=== PATIENT | female | born 1930 | race Caucasian/White ===

== ENCOUNTER → 2017-12-21 | Outpatient (CLI) | payer OTHER ==
[~2017-12-21] MED LIST: ASPI81CH PO; ATOR10 PO; Antivert25 MG PO; FLUSAL2505 INH; HYDR1TAB94 PO; IBUP200 PO; Lisinopril2.5 MG; NITR100CA PO; Norco 5-325 Ta1 EACH PO; OXYACE5T PO; PROACE100 PO; TIOT18 INH
== END | disposition home or self-care (01) ==
LOC: PLD 07:18 → LAB SHORT 07:18
DX: L82.1 Other seborrheic keratosis (principal)
CPT/HCPCS: 88305

== ENCOUNTER → 2019-11-23 | Outpatient (CLI) | payer OTHER | END | disposition home or self-care (01) | LOC: LAB SHORT 17:51 → LAB 17:51 | DX: R32 Unspecified urinary incontinence (principal) | CPT/HCPCS: 87077; 87086; 87186 ==

== ENCOUNTER 2020-07-04 05:39 | Emergency (ER) | payer OTHER ==
[~2020-07-04] VITALS: Ht 160 cm; Wt 47.6 kg
[2020-07-04 06:49] LABS: BASOPHILS ABSOLUTE AUTO 0.05 K/mm3 (0.00-0.23); BASOPHILS PERCENT AUTO 1 % (0-2); EOSINOPHILS ABSOLUTE AUTO 0.11 K/mm3 (0.00-0.68); EOSINOPHILS PERCENT AUTO 2 % (0-6); Hematocrit 42.8 % (33.0-51.0); Hemoglobin 13.8 g/dL (11.5-16.0); IMMATURE GRAN ABSOLUTE AUTO 0.02 K/mm3 (0.00-0.10); IMMATURE GRAN PERCENT AUTO 0 % (0-1); LYMPHOCYTES ABSOLUTE AUTO 1.44 K/mm3 (0.84-5.20); LYMPHOCYTES PERCENT AUTO 23 % (21-46); MONOCYTES ABSOLUTE AUTO 0.52 K/mm3 (0.16-1.47); MONOCYTES PERCENT AUTO 8 % (4-13); Mean Corpuscular HGB 34.4 pg (26.0-34.0); Mean Corpuscular HGB Conc 32.2 g/dL (31.5-36.5); Mean Corpuscular Volume 107 fL (80-100); Mean Platelet Volume 11.1 fL (9.1-12.4); NEUTROPHILS ABSOLUTE AUTO 4.13 K/mm3 (1.96-9.15); NEUTROPHILS PERCENT AUTO 66 % (41-73); Platelet Count 190 K/mm3 (150-400); RDW Coefficient Variation 14.6 % (11.7-14.2); RDW Standard Deviation 58.1 fL (35.1-46.3); Red Blood Cell Count 4.01 M/mm3 (3.80-5.20); White Blood Cell Count 6.27 K/mm3 (4.00-11.30)
[2020-07-04 07:04] LABS: Alanine Aminotransfer (ALT/SGP 31 U/L (12-78); Albumin, Blood 3.3 g/dL (3.4-5.0); Albumin/Globulin Ratio 0.8 (0.8-1.8); Alk Phos 176 U/L (50-136); Anion Gap 3 mmol/L (6-16); Aspartate Aminotrans (AST/SGOT 25 U/L (12-37); Bilirubin, Total 0.3 mg/dL (0.1-1.0); Blood Urea Nitrogen 28 mg/dL (8-24); Bun/Creatinine Ratio 30.3 (12.0-20.0); CO2, Blood 29 mmol/L (21-32); Chloride, Blood 105 mmol/L (98-108); Creatinine, Blood 0.92 mg/dL (0.40-1.00); Glomerular Filtration Rate >60 (60-); Glucose, Blood 88 mg/dL (70-99); Potassium, Blood 4.6 mmol/L (3.5-5.5); Sodium, Blood 137 mmol/L (136-145); Total Protein, Blood 7.3 g/dL (6.4-8.2); Troponin I <0.015 ng/mL (0.000-0.040)
[2020-07-04 07:30] LABS: Source, Urine Clean Catch
[2020-07-04 07:34] LABS: Appearance, Urine Clear (Clear); Bilirubin, Urine Neg (Neg); Blood, Urine 1+ (Neg); Color, Urine Yellow (P-Yellow); Glucose Qualitative, Urine Neg (Neg); Ketones, Urine Neg (Neg); Leukocyte Esterase, Urine Neg (Neg); Nitrite, Urine Neg (Neg); Protein, Urine 1+ (Neg); Urobilinogen, Urine NORM (Normal); pH, Urine 6.5 (5.0-8.0)
[2020-07-04 07:51] LABS: Bacteria Rare /hpf; Squamous Epithelial Cells Rare /hpf (Few); Transitional Epithelial Cells Few /hpf (0-Rare); White Blood Cells, Urine 0-2 /hpf (0-5)
== END 2020-07-04 08:04 | disposition home or self-care (01) ==
LOC: ER 05:39
PROVIDERS: Emergency Medicine
DX: R42 Dizziness and giddiness (principal); I10 Essential (primary) hypertension; J44.9 Chronic obstructive pulmonary disease, unspecified; E78.5 Hyperlipidemia, unspecified; Z88.1 Allergy status to other antibiotic agents; Z88.7 Allergy status to serum and vaccine; Z88.8 Allergy status to other drugs, medicaments and biological substances; Z79.82 Long term (current) use of aspirin; Z79.899 Other long term (current) drug therapy; F17.210 Nicotine dependence, cigarettes, uncomplicated
CPT/HCPCS: 36415; 70450; 71045; 80053; 81001; 84484; 85025; 93005; 93010; 99285-25

== ENCOUNTER 2020-11-08 13:08 | Emergency (ER) | payer OTHER ==
[~2020-11-08] VITALS: Ht 157.5 cm; Wt 49.9 kg
[2020-11-08 13:45] LABS: BASOPHILS ABSOLUTE AUTO 0.05 K/mm3 (0.00-0.23); BASOPHILS PERCENT AUTO 0 % (0-2); EOSINOPHILS ABSOLUTE AUTO 0.04 K/mm3 (0.00-0.68); EOSINOPHILS PERCENT AUTO 0 % (0-6); Hematocrit 42.7 % (33.0-51.0); Hemoglobin 13.5 g/dL (11.5-16.0); IMMATURE GRAN ABSOLUTE AUTO 0.05 K/mm3 (0.00-0.10); IMMATURE GRAN PERCENT AUTO 0 % (0-1); LYMPHOCYTES ABSOLUTE AUTO 0.97 K/mm3 (0.84-5.20); LYMPHOCYTES PERCENT AUTO 8 % (21-46); MONOCYTES ABSOLUTE AUTO 0.68 K/mm3 (0.16-1.47); MONOCYTES PERCENT AUTO 6 % (4-13); Mean Corpuscular HGB 34.2 pg (26.0-34.0); Mean Corpuscular HGB Conc 31.6 g/dL (31.5-36.5); Mean Corpuscular Volume 108 fL (80-100); Mean Platelet Volume 11.8 fL (9.1-12.4); NEUTROPHILS ABSOLUTE AUTO 9.75 K/mm3 (1.96-9.15); NEUTROPHILS PERCENT AUTO 85 % (41-73); Platelet Count 180 K/mm3 (150-400); Red Blood Cell Count 3.95 M/mm3 (3.80-5.20); White Blood Cell Count 11.54 K/mm3 (4.00-11.30)
[2020-11-08 14:43] LABS: Alanine Aminotransfer (ALT/SGP 27 U/L (12-78); Albumin, Blood 3.2 g/dL (3.4-5.0); Albumin/Globulin Ratio 0.8 (0.8-1.8); Alk Phos 158 U/L (50-136); Anion Gap 7 mmol/L (6-16); Aspartate Aminotrans (AST/SGOT 50 U/L (12-37); Bilirubin, Total 0.7 mg/dL (0.1-1.0); Blood Urea Nitrogen 40 mg/dL (8-24); Bun/Creatinine Ratio 43.5 (12.0-20.0); CO2, Blood 25 mmol/L (21-32); Calcium, Blood 8.8 mg/dL (8.5-10.1); Chloride, Blood 104 mmol/L (98-108); Creatinine, Blood 0.92 mg/dL (0.40-1.00); Globulin, Blood 3.9 g/dL (2.2-4.0); Glomerular Filtration Rate >60 (60-); Glucose, Blood 102 mg/dL (70-99); Potassium, Blood 5.1 mmol/L (3.5-5.5); Sodium, Blood 136 mmol/L (136-145); Total Protein, Blood 7.1 g/dL (6.4-8.2); Troponin I <0.015 ng/mL (0.000-0.040)
[2020-11-08] MEDS ORDERED: HYDR1TAB94 PO (15:09)
== END 2020-11-08 16:01 | disposition home or self-care (01) ==
LOC: ER 13:08
PROVIDERS: Emergency Medicine
DX: S22.42XA Multiple fractures of ribs, left side, initial encounter for closed fracture (principal); I10 Essential (primary) hypertension; J44.9 Chronic obstructive pulmonary disease, unspecified; E78.5 Hyperlipidemia, unspecified; F17.210 Nicotine dependence, cigarettes, uncomplicated; Z79.82 Long term (current) use of aspirin; Z79.899 Other long term (current) drug therapy; Z88.1 Allergy status to other antibiotic agents; Z88.7 Allergy status to serum and vaccine; Z86.73 Personal history of transient ischemic attack (TIA), and cerebral infarction without residual deficits; W19.XXXA Unspecified fall, initial encounter
CPT/HCPCS: 71046; 80053; 83880; 84484; 85025; 93005; 93010; A9270-GY

== ENCOUNTER 2020-11-10 20:30 | Inpatient (IN) | payer OTHER ==
[~2020-11-10] VITALS: Ht 157.5 cm; Wt 48.1 kg
[2020-11-10] MEDS ORDERED: FLUTICASONE-SA1 EAC9 INH ×2 (20:46→20:59)
[2020-11-10] MEDS ORDERED: HYDROCODONE-AC1 EA10 PO (20:46)
[2020-11-10] MEDS ORDERED: TIOT18 INH (20:46)
[2020-11-10] MEDS ORDERED: LISINOPRIL2.5 MG PO (20:47)
[2020-11-10] MEDS ORDERED: Ventolin/Prove6.7 GM INH (20:48)
[2020-11-10 20:55] LABS: BASOPHILS ABSOLUTE AUTO 0.04 K/mm3 (0.00-0.23); BASOPHILS PERCENT AUTO 0 % (0-2); EOSINOPHILS ABSOLUTE AUTO 0.03 K/mm3 (0.00-0.68); EOSINOPHILS PERCENT AUTO 0 % (0-6); Hematocrit 41.5 % (33.0-51.0); Hemoglobin 13.2 g/dL (11.5-16.0); IMMATURE GRAN ABSOLUTE AUTO 0.03 K/mm3 (0.00-0.10); IMMATURE GRAN PERCENT AUTO 0 % (0-1); LYMPHOCYTES PERCENT AUTO 6 % (21-46); MONOCYTES ABSOLUTE AUTO 1.03 K/mm3 (0.16-1.47); MONOCYTES PERCENT AUTO 10 % (4-13); Mean Corpuscular HGB 33.5 pg (26.0-34.0); Mean Corpuscular HGB Conc 31.8 g/dL (31.5-36.5); Mean Corpuscular Volume 105 fL (80-100); Mean Platelet Volume 11.1 fL (9.1-12.4); NEUTROPHILS PERCENT AUTO 83 % (41-73); Platelet Count 176 K/mm3 (150-400); RDW Coefficient Variation 15.2 % (11.7-14.2); RDW Standard Deviation 59.1 fL (35.1-46.3); Red Blood Cell Count 3.94 M/mm3 (3.80-5.20); White Blood Cell Count 10.03 K/mm3 (4.00-11.30)
[2020-11-10 21:14] LABS: Alanine Aminotransfer (ALT/SGP 24 U/L (12-78); Albumin, Blood 2.9 g/dL (3.4-5.0); Albumin/Globulin Ratio 0.7 (0.8-1.8); Alk Phos 188 U/L (50-136); Anion Gap 7 mmol/L (6-16); Aspartate Aminotrans (AST/SGOT 37 U/L (12-37); Bilirubin, Total 0.6 mg/dL (0.1-1.0); Blood Urea Nitrogen 50 mg/dL (8-24); Bun/Creatinine Ratio 55.2 (12.0-20.0); CO2, Blood 23 mmol/L (21-32); Calcium, Blood 9.2 mg/dL (8.5-10.1); Chloride, Blood 104 mmol/L (98-108); Creatinine, Blood 0.91 mg/dL (0.40-1.00); Globulin, Blood 4.2 g/dL (2.2-4.0); Glomerular Filtration Rate >60 (60-); Glucose, Blood 117 mg/dL (70-99); Sodium, Blood 134 mmol/L (136-145); Total Protein, Blood 7.1 g/dL (6.4-8.2)
[2020-11-10 23:30] LABS: Influenza A, PCR Negative (NEGATIVE); Influenza B, PCR Negative (NEGATIVE); Resp Syncytial Virus, PCR Negative (NEGATIVE); SARS-Cov-2 (COVID-19) PCR, MMC Negative (NEGATIVE)
--- NOTE | 2020-11-11 06:21 | NUR ---
Patient arrived in room 358 extremely tearful and difficult to get to focus on anything but her fractured rib pain. Severe short term memory loss, refusal to move to allow staff to assist with toileting, turning, etc. Patient refused placement of SCD's, I would recommend attempting this again in the Morning. Salvatore has a daughter, Mariaelena living in [place] who may be able to assist with information to determine discharge needs as the patient lives on her own and has taken several falls of late. Lungs very loose and coarse in upper airways and upper lobes with harsh barking cough that is of yet non productive
[2020-11-11 10:11] LABS: BASOPHILS ABSOLUTE AUTO 0.05 K/mm3 (0.00-0.23); BASOPHILS PERCENT AUTO 1 % (0-2); EOSINOPHILS ABSOLUTE AUTO 0.09 K/mm3 (0.00-0.68); EOSINOPHILS PERCENT AUTO 1 % (0-6); Hematocrit 40.9 % (33.0-51.0); IMMATURE GRAN ABSOLUTE AUTO 0.04 K/mm3 (0.00-0.10); IMMATURE GRAN PERCENT AUTO 1 % (0-1); LYMPHOCYTES ABSOLUTE AUTO 1.11 K/mm3 (0.84-5.20); LYMPHOCYTES PERCENT AUTO 13 % (21-46); MONOCYTES ABSOLUTE AUTO 0.82 K/mm3 (0.16-1.47); MONOCYTES PERCENT AUTO 10 % (4-13); Mean Corpuscular HGB 34.1 pg (26.0-34.0); Mean Corpuscular HGB Conc 31.8 g/dL (31.5-36.5); Mean Corpuscular Volume 107 fL (80-100); Mean Platelet Volume 11.2 fL (9.1-12.4); NEUTROPHILS ABSOLUTE AUTO 6.22 K/mm3 (1.96-9.15); NEUTROPHILS PERCENT AUTO 75 % (41-73); Platelet Count 161 K/mm3 (150-400); RDW Coefficient Variation 15.2 % (11.7-14.2); RDW Standard Deviation 60.5 fL (35.1-46.3); Red Blood Cell Count 3.81 M/mm3 (3.80-5.20); White Blood Cell Count 8.33 K/mm3 (4.00-11.30)
[2020-11-11 10:26] LABS: Anion Gap 7 mmol/L (6-16); Blood Urea Nitrogen 36 mg/dL (8-24); Bun/Creatinine Ratio 51.3 (12.0-20.0); CO2, Blood 23 mmol/L (21-32); Calcium, Blood 8.5 mg/dL (8.5-10.1); Chloride, Blood 109 mmol/L (98-108); Glomerular Filtration Rate >60 (60-); Glucose, Blood 87 mg/dL (70-99); Potassium, Blood 4.4 mmol/L (3.5-5.5); Sodium, Blood 139 mmol/L (136-145)
--- NOTE | 2020-11-11 12:34 | NUR ---
Met with pt after her work with PT. We had a flaquita long discussion about her life and future. She is wondering where she goes from here and if she is dying. We had an honest discussion about progression towrds when you have a longterm illness. We discussed comfort and a natural progression of life. She wants to stay i her home. Had a blunt discussion of letting help in to reduce suffering and return trips to hospital. She did not like but demonstarted understaning and accepatnce. We discussed levels of care and comfort did not broach hospice care. She does not want exptrodinary care or intubation. At this pointt wants comfort. Called her daughter to review our conversation and to confirm DNR status and if she agees. Had Bed side nurse witness. She did agree and believes she has adnr polst at home. Discussed plans of care with daughter including potential increased hospital visits and placement versus hospice. She was more intersted in hospice if her mother agrees. Will follow up with pt and family. Pt transtioned to DNR.
--- NOTE | 2020-11-11 16:45 | NUR ---
SHIFT SUMMARY PATIENT MEDICATED X2 FOR PAIN THIS SHIFT, VERY PAINFUL WITH MOVEMENT. SHORT OF BREATH WITH ACTIVITY, 3-4L/NC TO MAINTAIN OXYGEN SATURATION ABOVE 92%. DENIES NAUSEA. MEPILEX TO REDDENED AREA ON BUTTOCKS/COCCYX. PATIENT WORKD WITH PT, UP 1X W/FWW AND GAIT BELT TO [facility] [place] PALLIATIVE CARE CONSULTED, CODE STATUS CHANGED TO DNR. PATIENT AND FAMILY OPEN TO HOSPICE IF PATIENT CONTINUES TO DECLINE. NIECE GI VISTED IN AFTERNOON. PATIENT PLEASANT AND COPERATIVE WITH CARE.
[2020-11-12] MEDS ORDERED: FLUT1DIS5 INH (04:36)
[2020-11-12] MEDS ORDERED: Norco 5-325 Ta1 EACH PO (04:37)
[2020-11-12 05:23] LABS: BASOPHILS ABSOLUTE AUTO 0.03 K/mm3 (0.00-0.23); BASOPHILS PERCENT AUTO 0 % (0-2); EOSINOPHILS ABSOLUTE AUTO 0.05 K/mm3 (0.00-0.68); EOSINOPHILS PERCENT AUTO 1 % (0-6); Hematocrit 36.6 % (33.0-51.0); Hemoglobin 11.8 g/dL (11.5-16.0); IMMATURE GRAN ABSOLUTE AUTO 0.05 K/mm3 (0.00-0.10); IMMATURE GRAN PERCENT AUTO 1 % (0-1); LYMPHOCYTES ABSOLUTE AUTO 1.12 K/mm3 (0.84-5.20); LYMPHOCYTES PERCENT AUTO 15 % (21-46); MONOCYTES ABSOLUTE AUTO 0.89 K/mm3 (0.16-1.47); MONOCYTES PERCENT AUTO 12 % (4-13); Mean Corpuscular HGB 34.2 pg (26.0-34.0); Mean Corpuscular HGB Conc 32.2 g/dL (31.5-36.5); Mean Corpuscular Volume 106 fL (80-100); Mean Platelet Volume 11.2 fL (9.1-12.4); NEUTROPHILS ABSOLUTE AUTO 5.46 K/mm3 (1.96-9.15); NEUTROPHILS PERCENT AUTO 72 % (41-73); Platelet Count 156 K/mm3 (150-400); RDW Coefficient Variation 15.2 % (11.7-14.2); RDW Standard Deviation 59.7 fL (35.1-46.3); Red Blood Cell Count 3.45 M/mm3 (3.80-5.20)
[2020-11-12 05:40] LABS: Anion Gap 4 mmol/L (6-16); Blood Urea Nitrogen 29 mg/dL (8-24); CO2, Blood 26 mmol/L (21-32); Calcium, Blood 8.3 mg/dL (8.5-10.1); Chloride, Blood 108 mmol/L (98-108); Creatinine, Blood 0.71 mg/dL (0.40-1.00); Glomerular Filtration Rate >60 (60-); Glucose, Blood 96 mg/dL (70-99); Potassium, Blood 4.1 mmol/L (3.5-5.5); Sodium, Blood 138 mmol/L (136-145)
--- NOTE | 2020-11-12 06:38 | NUR ---
SHIFT SUMMARY PT IS AN 89 Y/O FEMALE, ADMITTED FOR PNA. PT IS A&O X 2, FORGETFUL AT TIMES, AND LEGALLY BLIND. ANXIOUS WHEN AWAKE R/T HER PAIN AND HER PROGNOSIS. PT C/O PAIN IN HER L SIDE R/T RIB FX FROM A RECENT FALL. SHE WAS MEDICATED ONCE DURING THE NIGHT WITH PRN OXYCODONE. ABLE TO GET UP 1PA STAND AND PIVOT TO THE BSC. NO C/O NAUSEA OR SOB. PT IS ON 3L VIA NC, HER NORMAL HOME DOSE. VITAL SIGNS STABLE. PT SLEPT WELL THROUGH THE NIGHT. NO ACUTE CHANGES IN PT CONDITION NOTED. WILL CONTINUE TO MONITOR AND TREAT PER EMAR UNTIL HAND OFF TO DAY SHIFT RN.
--- NOTE | 2020-11-12 07:21 | NUR ---
ASSUMED CARE OF PT- BEDSIDE REPORT COMPLETED WITH NIGHT RN. AFTER SHIFT CHANGE PT C/O SOB AND SATS WERE 89% ON 4L VIA NC. HAD PT TAKE SOME DEEP BREATHS AND AUSCULTATED LUNG SOUNDS SATS IMPROVED. WHEN PT WAS DISTRACTED SPEAKING WITH STAFF HER SATS INCREASED FURTHER. SEEMS PAIN MAY BE CAUSEING LOW SATS WILL CTM AT THIS TIME AND SPEAK TO DR ON MORNING ROUNDS. WILL MEDICATE PRN.
--- NOTE | 2020-11-12 17:16 | NUR ---
Spiritual care intial note: Mrs. Mcneill is fiercly independant and tells me she practices her own, unique spiritual path. She appears quite frail and held my hand tightly while we spoke. RN had just medicated for pain and she asked me to stay with her until pain resolved. She spoke about her life and the loss of her . She has a dtr who "helps as much as she can, but her is quite ill." Mrs. Mcneill believes she will return home upon discharge and does not think she needs any help with ADLs. I provided theraputic listening and gentle skilled nursing facility counselor until she appeared to fall asleep. We had a good rapport, and I will remain available.
--- NOTE | 2020-11-12 20:01 | NUR ---
SHIFT SUMMARY- PT HAS HAD NO ACUTE CHANGE T/O THE SHIFT. SHE IS STILL IN PAIN FROM THE RIBBS, THE TORADOL SEEMS TO WORK FAR BETTER THAN THE IV FENTANYL. PT IS VERY [place] AND DAUGHTER BROUGHT IN HER HEARING AID. PT SEEMS TO HEAR MUCH BETTER WITH IT BUT SHE CAN NOT TURN IT OFF HERSELF. FAMILY WANTS TO BE SURE THE PT HEARING AID IS TURNED OFF. PT HAS BEEN ASSISTED TO FEED HER HER FOOD D/T PAIN. PAIN SEEMS TO BE MUCH BETTER TONIGHT WHEN COMPARED TO THIS MORNING. PT HAS NOT HAD A BM IN 4 DAYS HOWEVER SHE STATED SHE DOES NOT FEEL CONSTIPATED. PASSED ON FOR THE NIGHT RN TO MEDICATE TO TRY TO ENCOURAGE A BM. PT REFUSES TO USE THE BED [place] IT IS TOO PAINFUL FOR HER TO USE. PT HAS BEEN USING ATTENDS AT THIS TIME.
--- NOTE | 2020-11-13 06:28 | NUR ---
89 year old Female who lives alone sustained lt rib fractures & has acute pain relieved by toradol 15 mg x 1 & oxcodone 5 mg x 1 & kpad. DC planning involved Family asks for updated plan of care. 4 l NC productive cough IS & flutter completed. 2 assist for toileting. Likes ensure drank 1 & 3/4 ensures with setup. very TORRES MARTINEZ hearing assistive device at bedside.
--- NOTE | 2020-11-13 10:05 | NUR ---
BP NOTIFIED ABOUT BP OF THE PT. CLOSE MONITORING FOR NOW NO ORDERS AT THIS TIME.
--- NOTE | 2020-11-13 17:28 | NUR ---
SHIFT SUMMARY PT AOX4 AND VERY EEK. PT IS VERY PAINFUL ON HER L RIBS; MEDICATED PER EMAR. PT ALSO Q2 TURN PRN. FOAM DRESSING CHANGED ON SACRAL FOR PROTECTION. PT USES KPAD. BED ALARM IS ON AND CALL LIGHT WITHIN REACH.
--- NOTE | 2020-11-14 03:55 | NUR ---
Elderly frail Female with GLfall who has several lt rib fractures continues to have pain limit movement she has been medicated with oxycodone 5 mg po x 2 & toradol 15 mg iv x 1 with helpful effect. Very hard of hearing but able to communicate. She has poor oral intake but drinks ensure with straw with setup & cues. She is also using lidoderm patches to lt ribs & kpad to area. Called [employer] DELIV[employer] CONSULTANT Kaylee Helms about more bowel care orders miralax given. Abd more distended & firm today. Had been living alone prior to fall with family support but she needs 2 for toileting ADLS Bed mobility & needs feeding. Incontient of urine. C & S pending urine culture.
[2020-11-14 04:53] LABS: BASOPHILS ABSOLUTE AUTO 0.06 K/mm3 (0.00-0.23); BASOPHILS PERCENT AUTO 1 % (0-2); EOSINOPHILS ABSOLUTE AUTO 0.14 K/mm3 (0.00-0.68); EOSINOPHILS PERCENT AUTO 2 % (0-6); Hematocrit 39.3 % (33.0-51.0); Hemoglobin 12.3 g/dL (11.5-16.0); IMMATURE GRAN ABSOLUTE AUTO 0.13 K/mm3 (0.00-0.10); IMMATURE GRAN PERCENT AUTO 2 % (0-1); LYMPHOCYTES ABSOLUTE AUTO 1.16 K/mm3 (0.84-5.20); LYMPHOCYTES PERCENT AUTO 14 % (21-46); MONOCYTES ABSOLUTE AUTO 0.88 K/mm3 (0.16-1.47); MONOCYTES PERCENT AUTO 11 % (4-13); Mean Corpuscular HGB 32.9 pg (26.0-34.0); Mean Corpuscular HGB Conc 31.3 g/dL (31.5-36.5); Mean Corpuscular Volume 105 fL (80-100); Mean Platelet Volume 10.9 fL (9.1-12.4); NEUTROPHILS ABSOLUTE AUTO 5.73 K/mm3 (1.96-9.15); NEUTROPHILS PERCENT AUTO 71 % (41-73); Platelet Count 182 K/mm3 (150-400); RDW Coefficient Variation 14.8 % (11.7-14.2); RDW Standard Deviation 57.8 fL (35.1-46.3); Red Blood Cell Count 3.74 M/mm3 (3.80-5.20)
[2020-11-14 05:15] LABS: Anion Gap 4 mmol/L (6-16); Blood Urea Nitrogen 40 mg/dL (8-24); Bun/Creatinine Ratio 55.6 (12.0-20.0); CO2, Blood 29 mmol/L (21-32); Calcium, Blood 8.5 mg/dL (8.5-10.1); Chloride, Blood 106 mmol/L (98-108); Creatinine, Blood 0.72 mg/dL (0.40-1.00); Glomerular Filtration Rate >60 (60-); Glucose, Blood 114 mg/dL (70-99); Potassium, Blood 4.4 mmol/L (3.5-5.5); Sodium, Blood 139 mmol/L (136-145)
--- NOTE | 2020-11-14 11:04 | NUR ---
PT IS NOW COMFORT CARE; AND ART GLASS DESIGNER TALKED WITH PT AND FAMILY ON THE PHONE.
--- NOTE | 2020-11-14 11:28 | NUR ---
Notified of pt/family decision to pursue comfort care by Lace Finisher. Will make comfort care visit later today for s/s assessment.
--- NOTE | 2020-11-14 15:00 | NUR ---
DAUGHTER AT BESIDE. MEDICATED PER EMAR
--- NOTE | 2020-11-14 16:08 | NUR ---
PT SLEEPING COMFORTABLY AT THIS TIME.
[2020-11-14 17:11] LABS: Source, Urine Catheter
[2020-11-14 17:14] LABS: Appearance, Urine Clear (Clear); Bilirubin, Urine Neg (Neg); Blood, Urine Neg (Neg); Color, Urine Yellow (P-Yellow); Glucose Qualitative, Urine Neg (Neg); Ketones, Urine Neg (Neg); Leukocyte Esterase, Urine 1+ (Neg); Nitrite, Urine Neg (Neg); Protein, Urine Neg (Neg); Urobilinogen, Urine NORM (Normal)
[2020-11-14 17:22] LABS: Bacteria Few /hpf; Mucus Light (0-Heavy); Red Blood Cells, Urine 0-2 /hpf (0-2); Squamous Epithelial Cells Few /hpf (Few)
--- NOTE | 2020-11-14 17:47 | NUR ---
Spiritual care note: I was present when physician spoke to Mikey about futility of rehab efforts. Mikey appeared to understand and agreed to going home with hospice. I stayed with Mikey after physician left and offered prayer/conversation. Mikey appears frail, but her spirits seemed lifted with the idea of returning home. She spoke with great pride about her children and grandkids. No concerns presented. I will remain available.
--- NOTE | 2020-11-14 18:10 | NUR ---
PT AWAKE AND MEDICATED THIS AFTERNOON. VERY PAINFUL DURING REPOSITIONING.
--- NOTE | 2020-11-14 18:11 | NUR ---
SHIFT SUMMARY PT ALERT AND VERY DIOMEDE. PT IS NOW IN COMFORT CARE SINCE THIS AM. FAMILY TALKED TO DR BARFIELD ON THE PHONE. SPIRITUAL CARE AND TALKED TO PT AND EXPLAINED THE PLAN OF GOING HOME WITH HOSPICE TOMORROW. PT IS VERY PAINFUL WHEN REPOSITIONING; HOWEVER SHE REFUSED ON MEDICATIONS SEVERAL TIMES TODAY; EDUCATED THE PT ABOUT PAIN INTERVENTIONS. MEDICATED THE PT X2 TODAY. Q2 TURN. DAUGHTER BENIGNO WAS AT BEDSIDE TODAY. PLACED A PENA CATHETER TO IMPROVE COMFORT FOT THIS PT- DRAINING AND PATENT. CALL LIGHT WITHIN REACH AND BED ALARM IS ON.
--- NOTE | 2020-11-14 20:50 | NUR ---
PT started on comfort care today appears comfortable.
--- NOTE | 2020-11-14 21:02 | NUR ---
PT sleeping comfortably removed lidoderm patches lt rib fxs & repositioned. PT awake temporarily & was slightly anxious but relaxed & back to sleep. Oxygen 4 l running per OS with laguerre cath draining. Bed alarm on but PT with little purposeful movement.
--- NOTE | 2020-11-15 00:22 | NUR ---
MEDICATED FOR PAIN WITH ROXINOL PT NOT SWALLOWING WELL HELD OTHER ORAL MEDS
--- NOTE | 2020-11-15 04:05 | NUR ---
89 year old female with acute pain related to lt rib fxs changed to comfort care yesterday & dc is planned home on hospice today at 11 am with Family involved in DC plan. She has woken up full 1 x and drank water & moved oxygen from Mouth to nasal & accepted denture & oral & eye care. High cath patent drains large amt clear franki urine.
--- NOTE | 2020-11-15 08:43 | NUR ---
BEDSIDE REPORT PT RESTING/SLEEPING. OPENS EYES w VERBAL STIM.
--- NOTE | 2020-11-15 08:45 | NUR ---
PT BECOMES PAINFUL L SIDE/RIBS w MOVEMENT, YELLING OUT IN PAIN. REPOSITIONED FOR COMFORT. SCHEDULED ORAL DILAUDID & PRN ROXANOL GIVEN FOR PAIN RELIEF. ADMISSION NURSE ASSIST w BF HOWEVER POOR APPETITE. DR BARFIELD IN TO [facility], [facility] TRANSFER HOME TODAY w HOSPICE. [facility] [employer] ARRANGE TRANSPORT FOR 1100. IV D/C INTACT. PENA CATH PATENT WILL GO HOME w IN PLACE.
[2020-11-15] MEDS ORDERED: DOCUZEN 8.6-501 EACH PO (08:51)
[2020-11-15] MEDS ORDERED: ATROPINE SULFATE2 M3 SL (08:51)
[2020-11-15] MEDS ORDERED: CEFU500T30 PO (08:51)
[2020-11-15] MEDS ORDERED: Dilaudid 2 mg Ta2 MG PO (08:52)
[2020-11-15] MEDS ORDERED: MORP20L SL (08:52)
[2020-11-15] MEDS ORDERED: VISBIOME PROBIOTIC PO (08:53)
--- NOTE | 2020-11-15 10:31 | NUR ---
TRANSFER HOME ARRANGED FOR 1130. PRACTICE ARCHITECT IN TO PROVIDE BEDBATH. PT STATE PAIN RELIEF @ THIS TIME. PLEASANT AFFECT.
--- NOTE | 2020-11-15 11:38 | NUR ---
PT G-DAUGHTER DALE UP TO VISIT, PROVIDED UPDATE. AMBULACE TRANSFER ARRIVE, PT PREMEDICATED w ROXANOL PRIOR TO TRANSFER D/T INCREASED PAIN w MOVEMENT. SHE IS A/OX2-3, PLEASANT
== END 2020-11-15 11:36 | disposition hospice, home (50) | DRG 871 ==
LOC: ER 20:30 → MEDS 23:07 → ER 11-11 01:04 → MEDS 11-11 01:07
PROVIDERS: Emergency Medicine; Internal Medicine; ADMIT Internal Medicine
DX: A41.9 Sepsis, unspecified organism (principal); J96.21 Acute and chronic respiratory failure with hypoxia; J18.9 Pneumonia, unspecified organism; E43 Unspecified severe protein-calorie malnutrition; S22.32XA Fracture of one rib, left side, initial encounter for closed fracture; J98.11 Atelectasis; J44.1 Chronic obstructive pulmonary disease with (acute) exacerbation; R64 Cachexia; Z68.1 Body mass index [BMI] 19.9 or less, adult; Z66 Do not resuscitate; R65.20 Severe sepsis without septic shock; Z20.822 Contact with and (suspected) exposure to COVID-19; I10 Essential (primary) hypertension; R29.6 Repeated falls; Z91.81 History of falling; W19.XXXA Unspecified fall, initial encounter; M81.0 Age-related osteoporosis without current pathological fracture; E78.5 Hyperlipidemia, unspecified; G89.4 Chronic pain syndrome; F17.210 Nicotine dependence, cigarettes, uncomplicated; Z99.81 Dependence on supplemental oxygen; Z86.73 Personal history of transient ischemic attack (TIA), and cerebral infarction without residual deficits; Z79.82 Long term (current) use of aspirin; Z79.51 Long term (current) use of inhaled steroids
CPT/HCPCS: 0241U; 36415; 71250; 80048; 80053; 81001; 83605; 84145; 85025; 87040; 87086; 93005; 93010; 94640; 94668; 94760; 96365; 96367; 97110; 97112; 97161; 97530; 99285-25; A9270; J0456; J0696; J1885; J3010; J7030; J7050